=== PATIENT | male | born 1980 | race Caucasian/White ===

== ENCOUNTER 2020-12-10 23:32 | Emergency (ER) | payer BC ==
[~2020-12-10] VITALS: Ht 177.8 cm; Wt 76.3 kg
--- NOTE | 2020-12-11 00:22 | NUR ---
pt having ab pain that started after drinking some wine, pt denied getting any labs drawn due to finacial concerns. pt agreeable for pain/nausea meds and fluids
[2020-12-11] MEDS ORDERED: MORPHINE SULFATE 4 MG/ML, 1ML ONE (00:29)
[2020-12-11] MEDS ORDERED: ONDANSETRON 2MG/ML, 2ML ONE ×2 (00:29→00:59)
[2020-12-11] MEDS ORDERED: METOCLOPRAMIDE 5 MG/ML, 2ML ONE (00:29)
[2020-12-11] MEDS ORDERED: ONDANSETRON 2MG/ML, 2ML IVPush ONE (00:30)
[2020-12-11] MEDS ORDERED: SODIUM CHLORIDE 0.9% 1,000ML IVBOLUS ONE (00:30)
[2020-12-11] MEDS ORDERED: METOCLOPRAMIDE 5 MG/ML, 2ML IVPush ONE (00:30)
[2020-12-11] MEDS ORDERED: MORPHINE SULFATE 4 MG/ML, 1ML IVPush PRN (00:30)
[2020-12-11 00:57] VITALS: BP 130/78
== END 2020-12-11 01:40 | disposition home or self-care (01) ==
LOC: ED 12-11 00:02
DX: R10.84 Generalized abdominal pain (principal); R11.2 Nausea with vomiting, unspecified; R19.7 Diarrhea, unspecified; F17.210 Nicotine dependence, cigarettes, uncomplicated; Z90.89 Acquired absence of other organs
CPT/HCPCS: 96361; 96374; 96375; 99284; 99406; J2270; J2405; J2765; J7030

== ENCOUNTER 2020-12-11 14:26 | Emergency (ER) | payer BC ==
[~2020-12-11] VITALS: Ht 177.8 cm; Wt 76.3 kg
--- NOTE | 2020-12-11 15:19 | NUR ---
RN MDS COORDINATOR: PT TO ROOM FROM YAQUELIN BECKER
--- NOTE | 2020-12-11 15:41 | NUR ---
PT AMBULATORY TO ROOM 12 W/ C/O N/V/D STARTED YESTERDAY. PT STATES IT HAS HAPPENED A LOT. PT STATES HE CAME IN YESTERDAY AND WAS SEEN AND TREATED FOR SAME. PT STATES UPPER ABD PAIN 8/10 HAS NOT IMPROVED SINCE YESTERDAY. PT RESTING ON GURNEY. NADN. MONITORS APPLIED. VSBell. LUPE WITT AT BEDSIDE FOR EVAL.
[2020-12-11] MEDS ORDERED: FAMOTIDINE 20 MG TABLET PO ONE (16:00)
[2020-12-11] MEDS ORDERED: MAALOX/HYOSCYAMINE/LIDOCAINE 45 ML BTL PO ONE (16:00)
[2020-12-11] MEDS ORDERED: ONDANSETRON ODT 4 MG PO ONE (16:00)
[2020-12-11] MEDS ORDERED: ZIPRASIDONE 20 MG INJ IM ONE ×2 (16:00→16:06)
[2020-12-11] MEDS ORDERED: FAMOTIDINE 20 MG TABLET ONE (16:05)
[2020-12-11] MEDS ORDERED: ONDANSETRON ODT 4 MG ONE (16:06)
[2020-12-11] MEDS ORDERED: MAALOX/HYOSCYAMINE/LIDOCAINE 45 ML BTL ONE (16:06)
--- NOTE | 2020-12-11 16:14 | NUR ---
PT REFUSING LABS AND EKG. ERP DR. BURNETT AWARE.
[2020-12-11 16:48] VITALS: BP 156/78
--- NOTE | 2020-12-11 16:48 | NUR ---
PT REQUESTING TO LEAVE. ERP DR. BURNETT NOTIFIED.
--- NOTE | 2020-12-11 16:55 | NUR ---
PT GURJIT PO FLUIDS. PT PROVIDED W/ DC PAPERS.
== END 2020-12-11 16:57 | disposition home or self-care (01) ==
LOC: ED 16:51
DX: R11.2 Nausea with vomiting, unspecified (principal); R10.9 Unspecified abdominal pain; Z90.89 Acquired absence of other organs; Z79.899 Other long term (current) drug therapy
CPT/HCPCS: 96372; 99284; J3486; Q0162